=== PATIENT | female | born 2000 | race Caucasian/White ===

== ENCOUNTER 2022-03-27 15:10 | Inpatient (IN) | payer MEDICAID, SELFPAY ==
[2022-03-27] VITALS (26 sets, daily range): BP systolic 92–146; BP diastolic 55–93; PULSE 52–108; RESP 18; TEMP 35.6–36.6; BMI 23.6
[2022-03-27] MEDS: lactated ringers 1,000 ML 125 ML (16:21)
[2022-03-27] MEDS: oxytocin 30 UNIT/500 ML BAG 999 UNIT (16:21)
[2022-03-27] MEDS: tranexamic acid 1,000 mg/10mL SDV 1000 MG (16:22)
[2022-03-27 16:25] LABS: Basophils % 0.2 %; Eosinophils # 0.1 10^3/uL (0.0-0.8); Eosinophils % 0.6 %; Hemoglobin 12.1 g/dL (11.5-15.3); Lymphocytes # 2.7 10^3/uL (0.8-4.8); Lymphocytes % 18.8 %; Mean Corpuscular HGB Conc 32.7 g/dL (30.0-36.0); Mean Corpuscular Hemoglobin 29.1 pg (28.0-34.0); Mean Corpuscular Volume 88.9 fl (81-99); Mean Platelet Volume 12.3 fL (7.4-10.4); Monocytes # 1.2 10^3/uL (0.2-0.9); Neutrophils # 10.33 10^3/uL (1.8-7.7); Neutrophils % 71.7 %; Nucleated Red Blood Cells % 0 %; Platelet Count 187 10^3/cmm (130-400); Red Blood Count 4.16 10^6/uL (4.1-5.3); Red Cell Distribution Width 12.6 % (12.1-15.1); White Blood Count 14.4 10^3/uL (4.0-10.0)
--- NOTE | 2022-03-27 16:25 | P.HP_ITS ---
Providers/Chief Complaint Admitting Physician: Leah Franco MD Primary BROADCAST TRAFFIC COORDINATOR: none Chief Complaint: labor HPI BROADCAST TRAFFIC COORDINATOR History of Present Illness Tonja Mccartney is a 21 year old female with no care, who presented to labor and delivery in Labor with complete cervical dilation. She could not answer questions due to being under the influence of methamphetamine. She reports that she did not receive care with this . Her last baby was born at term at [facility]. He weight 4 pounds 9 oz. She last used methamphetamine 2 days ago. Review of Systems General: Reports: 10 or more systems reviewed and unremarkable except in HPI and below Vitals/I&O/Wt Last Vital Signs Pulse 80 03/27/22 16:20 BP 126/59 03/27/22 16:20 Physical Exam Narrative: The patient is screaming and thrashing. Const: COMMON NORMALS: average body habitus EXAM LIMITATIONS: altered mental status GENERAL APPEARANCE: combative and disheveled NUTRITIONAL APPEARANCE: thin ORIENTATION/CONSCIOUSNESS: Yes awake, Yes oriented to person and Yes oriented to place Resp: COMMON NORMALS: normal respiratory effort EFFORT & INSPECTION: Yes able to speak in complete sentences GI: COMMON NORMALS: Soft to palpation and non-tender : COMMON NORMALS: Yes normal external appearance, Yes normal appearance of the vagina and Yes normal appearance of the cervix Data : 03/27/22 15:20 Attestations Medical Necessity Statement*: The patient will likely be here just one day. I anticipate that this baby will not go home with the parents. Coding Level of Care Code Acute Steel Layout Worker for Catalina Diaz
--- NOTE | 2022-03-27 16:31 | PM.DELIVERY ---
Delivery Note: Date of delivery: March 27, 2022 Pre-delivery diagnoses: iup at unknown gestation, fundal height 22 cm, complete cervical dilation Post-delivery diagnoses: term male in the SHALINI presentation with a compound left hand Procedure: Delivering Physician: luis Estimated blood loss (mL): 525 Pre-Delivery Course: The patient presented to labor and delivery with unknown gestational age with complete cervical dilation. AROM was performed as there was a bulging bag of water Delivery: The patient had complete cervical dilation and began to push. The head delivered in the SHALINI position over an intact perineum under no anesthesia. The nose and mouth were bulb suctioned. The shoulders and body delivered atraumatically. The baby was placed onto the mother's abdomen. The cord was clamped and cut. Cord blood was obtained. The placenta delivered spontaneously. It was inspected and found to be intact. Inspection of the perineum revealed no repair required. pitocin delivery was delayed due to the urgency of the delivery. Pitocin was finally started, but the patient had significant uterine atony. Fundal massage, as well as bi-manual exam was performed. Cytotec 800 mcg was given rectally. TXA was also given. Estimated blood loss 525 mL. Apgars on baby were 9 at 1 minute and 9 at 5 minutes. Weight of baby is 4 pounds 12 ounces. Mother and baby were stable post delivery. Coding Level of Care Code Acute Aircraft Instrument Mechanic for Catalina Diaz
[2022-03-27 16:39] LABS: Amphetamines Screen Urine Positive (Negative); Barbiturates Screen Urine Negative (Negative); Benzodiazepines Screen Urine Negative (Negative); Cocaine Screen Urine Negative (Negative); Opiate Screen Urine Negative (Negative); PCP Screen Urine Negative (Negative); THC Screen Urine Positive (Negative)
[2022-03-27 17:02] LABS: Hepatitis B Surface Antigen Non-Reactive (Nonreactive)
[2022-03-27 17:10] LABS: Rapid Plasma Reagin Syphilis Nonreactive (Nonreactive); Rubella IgG 166.7 IU/mL (0.0-10.0)
[2022-03-27 17:22] LABS: HIV 1 & 2 Antibody Non-Reactive (Non-Reactiv); HIV 1 & 2 Antigen Non-Reactive (Non-Reactiv)
[2022-03-27] MEDS: nicotine 14 mg Patch 1 PATCH TRANSDERMA (18:28)
[2022-03-27] MEDS: acetaminophen 325 mg Tablet 650 MG PO (19:41)
[2022-03-27 19:51] LABS: Alcohol Level < 10 mg/dL (0-10)
[2022-03-27] MEDS: ibuprofen 800 mg tablet PO (20:59)
[2022-03-27] MEDS: hyDROXYzine 25 mg Capsule 50 MG PO (20:59)
--- NOTE | 2022-03-27 21:00 | PC.NURSE ---
Nurse educated pt on safe sleep for baby.
--- NOTE | 2022-03-27 21:56 | PC.NURSE ---
This pt stated that she wished her baby was a girl and born at 420.
[2022-03-28] VITALS: BP 105/75; PULSE 76
--- NOTE | 2022-03-28 00:59 | PC.NURSE ---
This nurse went to round on baby boy, when I walked into the room baby boy was whimpering and soaked in vomit parents stayed asleep, this nurse tried to wake them however they stayed asleep so this nurse attempted to tell mom I was taking the baby to clean him up, she stated, ok whatever.
[2022-03-28 01:00] VITALS: BP 110/67; PULSE 69
[2022-03-28 04:51] VITALS: BP 95/62; PULSE 65
[2022-03-28] MEDS: acetaminophen 325 mg Tablet 650 MG PO (05:29)
[2022-03-28 05:31] LABS: Hematocrit 25.4 % (37.0-47.0); Hemoglobin 8.6 g/dL (11.5-15.3); Mean Corpuscular HGB Conc 33.9 g/dL (30.0-36.0); Mean Corpuscular Volume 85.5 fl (81-99); Mean Platelet Volume 11.4 fL (7.4-10.4); Platelet Count 143 10^3/cmm (130-400); Red Blood Count 2.97 10^6/uL (4.1-5.3); Red Cell Distribution Width 12.6 % (12.1-15.1); White Blood Count 11.4 10^3/uL (4.0-10.0)
--- NOTE | 2022-03-28 06:23 | PC.NURSE ---
This nurse checked on pt hourly pt never did wake up to feed baby, this nurse had to take baby and feed him
--- NOTE | 2022-03-28 06:36 | PM.OBGYDC ---
Discharge Providers ELECTRONIC IMAGING SYSTEM OPERATOR Date of Admission: 03/27/22 15:48 Date of Discharge: 03/29/22 Attending Provider at Admission: Leah Franco MD Attending Provider at Discharge: Lori Brody MD - PRE-DELIVERY DIAGNOSIS: 21-year-old 3 para 1-0-1-1 of unknown gestation-likely term No care Active labor Drug use-marijuana and methamphetamines History of anxiety and depression not on medication POST-DELIVERY DIAGNOSIS: Vaginal delivery on 03/27/2022 PROCEDURE: Vaginal delivery on 03/27/2022 HOSPITAL COURSE: She underwent an vaginal delivery on 03/27/2022-she did have some bleeding which was controlled with medication--please refer to Dr. Farnco's delivery note for details. She did well on day 0 and was ambulating well, tolerating regular diet, voiding freely, passing flatus. Formula feeding her child. Pain was well-controlled with by mouth pain medication. She denied nausea, vomiting, fever, chills, shortness of breath, leg pain. She did take Vistaril for anxiety on forced day #0. Given her history of anxiety and depression and history of suicidal attempt psychiatry consult was called and she was seen by Dr. Murdock On 03/28/2022 and he recommended that she restart Seroquel and she desired to follow-up with [facility] instead of [place] despite extended waiting time. She had moderate vaginal bleeding. On day # 1 she continued to do well with stable vital signs and stable hemoglobin at 8.6--this was repeated 6 hours later and was stable at 8.9. Orthostatics were positive however patient denied any symptoms of dizziness or nausea and felt fine. Vital signs were otherwise within normal limits. She was discharged home on day 1 in a stable condition, as she desired early discharge. Warning signs for endometritis, mastitis, DVT/PE were reviewed with her. Post delivery activity restrictions were also reviewed with her at all her questions were answered to her satisfaction. Plans on using the pill for contraception and she was given a prescription for Micronor for 6 weeks EXAM AT DISCHARGE: Gen.: No acute distress Heart: S1-S2 heard, regular rate and rhythm Lungs: Clear to auscultation bilaterally Abdomen: Soft, fundus firm below umbilicus, Legs: No calf tenderness, trace bilateral pitting pedal edema. CONDITION AT DISCHARGE: Stable This documentation was created by [employer] remedial project manager software (known for inherent remedial project manager error). Every effort was made to assure accuracy of remedial project manager. Any obvious errors or omissions should be clarified with the author of the document. This documentation was created by [employer] remedial project manager software (known for inherent remedial project manager error). Every effort was made to assure accuracy of remedial project manager. Any obvious errors or omissions should be clarified with the author of the document. Reason for Visit Reason for Visit: labor Information Peripartum Data: Delivery Method: Vaginal Discharge Data Studies Completed and Pending Pending at discharge Category Date Time Status Amphetamine Confirmation, GC/M Routine Lab 03/27/22 15:45 Received Chlamydia Trachomatis LYNDSAY Routine Lab 03/27/22 15:45 Received Neisseria Gonorrhoeae LYNDSAY Routine Lab 03/27/22 15:45 Received Retype for Patiets ABO/Rh Routine Lab 03/27/22 18:09 Ordered Pathology: Surgical [PTH] Routine Pth 03/27/22 16:46 Ordered Laboratory Results WBC 11.4 10^3/uL (4.0-10.0) H 03/28/22 05:23 RBC 2.97 10^6/uL (4.1-5.3) L 03/28/22 05:23 Hgb 8.6 g/dL (11.5-15.3) L 03/28/22 05:23 Hct 25.4 % (37.0-47.0) L D 03/28/22 05:23 MCV 85.5 fl (81-99) 03/28/22 05:23 MCH 29.0 pg (28.0-34.0) 03/28/22 05:23 MCHC 33.9 g/dL (30.0-36.0) 03/28/22 05:23 RDW 12.6 % (12.1-15.1) 03/28/22 05:23 Plt Count 143 10^3/cmm (130-400) 03/28/22 05:23 MPV 11.4 fL (7.4-10.4) H 03/28/22 05:23 Neut % (Auto) 71.7 % 03/27/22 15:20 Lymph % (Auto) 18.8 % 03/27/22 15:20 Porter % (Auto) 8.0 % 03/27/22 15:20 Eos % (Auto) 0.6 % 03/27/22 15:20 Baso % (Auto) 0.2 % 03/27/22 15:20 Neut # (Auto) 10.33 10^3/uL (1.8-7.7) H 03/27/22 15:20 Lymph # (Auto) 2.7 10^3/uL (0.8-4.8) 03/27/22 15:20 Porter # (Auto) 1.2 10^3/uL (0.2-0.9) H 03/27/22 15:20 Eos # (Auto) 0.1 10^3/uL (0.0-0.8) 03/27/22 15:20 Baso # (Auto) 0.0 10^3/uL (0.0-0.1) 03/27/22 15:20 Nucleated RBC % (auto) 0 % 03/27/22 15:20 Nucleated RBCs # 0.0 /100WBC 03/27/22 15:20 Urine Opiates Screen Negative ng/mL (Negative) 03/27/22 15:45 Ur Barbiturates Screen Negative ng/mL (Negative) 03/27/22 15:45 Ur Phencyclidine Scrn Negative ng/mL (Negative) 03/27/22 15:45 Ur Amphetamines Screen Positive ng/mL (Negative) H 03/27/22 15:45 U Benzodiazepines Scrn Negative ng/mL (Negative) 03/27/22 15:45 Urine Cocaine Screen Negative ng/mL (Negative) 03/27/22 15:45 U Marijuana (THC) Screen Positive ng/mL (Negative) H 03/27/22 15:45 Ethyl Alcohol < 10 mg/dL (0-10) 03/27/22 15:20 RPR Nonreactive (Nonreactive) 03/27/22 15:20 Hep Bs Antigen Non-reactive (Nonreactive) 03/27/22 15:20 HIV 1&2 Ab & HIV 1 Ag Non-reactive (Non-Reactiv) 03/27/22 15:20 HIV 1&2 Antibody Non-reactive (Non-Reactiv) 03/27/22 15:20 Rubella IgG Antibody 166.7 IU/mL (0.0-10.0) H 03/27/22 15:20 Blood Type A Positive 03/27/22 15:20 Rho(D) Type Positive 03/27/22 15:20 Antibody Screen Negative 03/27/22 15:20 Vitals Last Vital Signs Temp 97.6 F 03/27/22 21:30 Pulse 65 03/28/22 04:51 Resp 18 03/27/22 16:25 BP 95/62 03/28/22 04:51 O2 Del Method 03/27/22 16:21 Discharge Plan Discharge Patient Disposition: Home Condition: Stable Prescriptions: New ibuprofen 800 mg tablet 800 mg PO Q8H Qty: 30 0RF ferrous sulfate 325 mg (65 mg iron) tablet 325 mg PO BID Qty: 30 0RF docusate sodium 100 mg capsule 100 mg PO BID PRN (Reason: constipation) Qty: 30 0RF Ortho Micronor 0.35 mg tablet 0.35 mg PO DAILY Qty: 50 0RF Rx Instructions: Take 1 tablet by mouth every day for 6 weeks and follow-up with for further refills Seroquel XR 200 mg tablet extended release 24 hr 200 mg PO .q6PM Qty: 30 1RF Discharge Orders: Discharge Order (Routine); Ordered 03/28/22 Ordered By: Lori Mcmahon Referrals: Leah Franco MD [Physician] - (* Please call first thing Wednesday morning to make your 6-week ) Discharge Diet: Regular Discharge Activity: Limit activity as instructed Patient Instructions: Depression (DC), Bleeding (DC), Preeclampsia and Eclampsia After Delivery (GEN), OB Discharge Report, OB Food/Drug Interaction Guide, Opioid Safety, OB Home Care, OB Proud Parent Packet, OB Vaginal Deliveries - [facility] Activity Restrictions/Additional Instructions: No heavy lifting for 6 weeks, pelvic rest for 6 weeks Follow-up with Dr. Franco for 6-week visit Emergency room precautions reviewed Discharge Attestations ELECTRONIC IMAGING SYSTEM OPERATOR Time Spent in Discharge Care*: greater than 30 min Coding Level of Care Code Acute Die Maker Bench Stamping for Chuyg Emily
[2022-03-28] MEDS: docusate sodium 100 mg Capsule PO (08:01)
[2022-03-28] MEDS: ibuprofen 800 mg tablet PO ×2 (08:01→16:11)
[2022-03-28] MEDS: prenatal vitamin Capsule 1 CAP PO (08:01)
[2022-03-28] MEDS: nicotine 14 mg Patch 1 PATCH TRANSDERMA (08:02)
[2022-03-28 08:37] VITALS: BP 100/65; BP 101/68; BP 86/50; PULSE 106; PULSE 150; PULSE 92
[2022-03-28 08:50] LABS: Basophils % 0.2 %; Eosinophils # 0.2 10^3/uL (0.0-0.8); Eosinophils % 1.5 %; Hematocrit 25.9 % (37.0-47.0); Hemoglobin 8.9 g/dL (11.5-15.3); Lymphocytes # 2.6 10^3/uL (0.8-4.8); Lymphocytes % 21.7 %; Mean Corpuscular HGB Conc 34.4 g/dL (30.0-36.0); Mean Corpuscular Hemoglobin 29.7 pg (28.0-34.0); Mean Corpuscular Volume 86.3 fl (81-99); Mean Platelet Volume 11.3 fL (7.4-10.4); Monocytes # 0.8 10^3/uL (0.2-0.9); Neutrophils # 8.21 10^3/uL (1.8-7.7); Neutrophils % 68.6 %; Nucleated Red Blood Cells % 0 %; Platelet Count 146 10^3/cmm (130-400); Red Cell Distribution Width 12.6 % (12.1-15.1)
[2022-03-28] MEDS: hyDROXYzine 25 mg Capsule 50 MG PO (13:38)
--- NOTE | 2022-03-28 14:04 | P.NPUCON_ITS ---
Providers/Reason for Consult Consulting Physican/Specialty*: Hal Murdock Reason for Consult*: psychiatric followup Attending Physician: Leah Franco MD Psych Consult HPI History of Present Illness Tonja Mccartney is a 21 year old female who delivered her second child yesterday. The patient's first child is currently in DFS custody at the age of 2. The patient reports a history of bipolar disorder with a history of mood sw ings racing thoughts increased periods of irritability along with periods of depression. She also endorses a past history of auditory hallucinations. She reports having received psychiatric treatment extensively through [place] and had been receiving psychiatric care under Dr. Lena Steven prior to finding out that she was in April 2021. The patient reports that she had stopped her psychiatric medications which included Seroquel 200 mg at night and Klonopin 1 mg 3 times a day and reports that she had decided instead to use methamphetamine and opiates including heroin and fentanyl during her . Patient reports a history of multiple inpatient hospitalizations. She reports no history of active, homicidal or suicidal thoughts. She reports having chronic problems with insomnia. She reports having frequent panic attacks. Outpatient tx: Dr. Lena Steven DO, last seen 9 months ago. Drug and Alcohol history: The patient reports extended history of nicotine use marijuana use and frequent methamphetamine use over the past few years. She reports having been placed in rehabilitation facilities in the past. Medical Hx: none reported Allergies: zithromax Pertinent social history: The patient was born in [facility] she reports having 1 brother. She reports dropping out of school in the eighth grade. She reports never having had earned a GED. She reports an extensive legal history of criminal trespassing. She reports that she is planning on living in [place] although currently she is residing in [facility]. Meds Home Medications and Allergies Home Medications Medication Instructions Recorded Confirmed Last Taken Type docusate sodium 100 mg capsule 100 mg PO BID PRN constipation #30 03/28/22 Unknown Rx caps ferrous sulfate 325 mg (65 mg 325 mg PO BID anemia #30 tabs 03/28/22 Unknown Rx iron) tablet ibuprofen 800 mg tablet 800 mg PO Q8H pain #30 tabs 03/28/22 Unknown Rx norethindrone (contraceptive) 0.35 0.35 mg PO DAILY #50 tabs 03/28/22 Unknown Rx mg tablet (Ortho Micronor) quetiapine 200 mg tablet,extended 200 mg PO .q6PM #30 tabs 03/28/22 Unknown Rx release 24 hr (Seroquel XR) Allergies Allergy/AdvReac Type Severity Reaction Status Date / Time azithromycin Allergy ADR-Headach Verified 03/27/22 17:21 [From Zithromax Z-Omer] e Current Medications Current Medications Generic Name Dose Route Start Last Admin Trade Name Freq PRN Reason Stop Dose Admin Acetaminophen 650 mg 03/27/22 16:10 03/28/22 05:29 Acetaminophen 325 Mg Tablet PO 650 mg Q6H PRN Administration Mild pain or temp > 100.4 Docusate Sodium 100 mg 03/27/22 18:00 03/28/22 08:01 Docusate Sodium 100 Mg Capsule PO 100 mg BID RY Administration Hydroxyzine Pamoate 50 mg 03/27/22 16:10 03/28/22 13:38 Hydroxyzine 25 Mg Capsule PO 50 mg QID PRN Administration sleep, agitation or itching Ibuprofen 800 mg 03/27/22 21:00 03/28/22 08:01 Ibuprofen 800 Mg Tablet PO 800 mg TID RY Administration Nicotine 1 patch 03/27/22 18:30 03/28/22 08:02 Nicotine 14 Mg Patch TRANSDERMA 1 patch DAILY RY Administration Multivit/Folic Acid/Iron 1 cap 03/28/22 09:00 03/28/22 08:01 Vitamin Capsule PO 1 cap DAILY RY Administration PFSH NPU Female Reproductive History: : 2 Mental Status Exam MSE Comments: She is a thin white female who appeared her stated age. She appeared in no acute distress. There was no evidence of any abnormal involuntary motor movements tics or tremors. Her mood was described as okay. Her affect was mood congruent and euthymic her thought process was linear and logical but superficial her thought content showed no evidence of active homicidal or suicidal ideation. There is no evidence of delusional thinking. She did not appear to be responding to internal stimuli. Her insight was poor. Her judgment was poor her impulse control remained limited. Vitals/I&O/Wt Last Vital Signs Temp 97.6 F 03/27/22 21:30 Pulse 92 03/28/22 08:37 Resp 18 03/27/22 16:25 BP 100/65 03/28/22 08:37 O2 Del Method 03/27/22 16:21 Weight last 48 hrs Weight 56.7 kg Weight 56.7 kg Data NPU : 03/28/22 08:40 Micro: Microbiology 03/27/22 15:45 Neisseria gonorrhoeae (LYNDSAY) - Final Urine Random 03/27/22 15:45 Chlamydia trachomatis (LYNDSAY) - Final Urine Random Microbiology 03/27/22 15:45 Urine Random Neisseria gonorrhoeae (LYNDSAY) - Final 03/27/22 15:45 Urine Random Chlamydia trachomatis (LYNDSAY) - Final A&P Assessment and plan (1) Mood disorder: Status: Acute (2) Polysubstance abuse: Status: Acute Plan Plan: 1. Restart Seroquel xr 200mg in AM as previously prescribed to target mood instability 2. Not agreeable to starting any benzodiazepines 3. Patient wishes for follow up with [facility] despite reports of extended waiting times. Patient informed of walk in clinic. Patient also encouraged to consider with following up with Dr. Lena Steven as previously done. She was agreeable to team contacting them to get an appointment earlier with him. 4. Consider use of suboxone on outpatient basis for opiate addiction. 5. Referral for case management services may be necessary given the patient's ongoing addiction issues in leading to patient having Department of Family Services involvement again. Attestations NPU Medical Necessity Statement*: NA Coding Level of Care Code New Pt Acute Android Architect for Chg Fwd Patient Type New History Problem Focused Exam Problem Focused Medical Decision Making Straight Forward Diagnoses Mood disorder F39 Polysubstance abuse F19.10
--- NOTE | 2022-03-28 16:10 | PC.NURSE ---
THIS AUTOMOTIVE PARTS COUNTER ASSISTANT WROTE A LENGTHY INCIDENT REPORT ON THIS PATIENT, SEE THAT FOR DETAILS IF NEEDED.
[2022-03-28 16:32] VITALS: BP 100/62; PULSE 82; RESP 16; TEMP 36.7
[2022-03-28 16:54] VITALS: BP 100/62; PULSE 82; RESP 16; TEMP 36.7
[2022-04-03 16:57] LABS: Amphetamine 1300 ng/mL; Methamphetamine 12000 ng/mL; Methylenedioxyamphetamine negative; Methylenedioxyethylamphetamine negative; Methylenedioxymethamphetamine negative
== END 2022-03-28 16:56 | disposition home or self-care (01) | DRG 806 ==
PROVIDERS: Obstetrics & Gynecology; Admitting Provider Obstetrics & Gynecology; Visit Provider Obstetrics & Gynecology
DX: O99.324 Drug use complicating childbirth (principal); F11.20 Opioid dependence, uncomplicated; Z37.0 Single live birth; O72.1 Other immediate postpartum hemorrhage; F19.10 Other psychoactive substance abuse, uncomplicated; F15.10 Other stimulant abuse, uncomplicated; O32.6XX0 Maternal care for compound presentation, not applicable or unspecified; O99.344 Other mental disorders complicating childbirth; F39 Unspecified mood [affective] disorder; Z3A.00 Weeks of gestation of pregnancy not specified; Z65.3 Problems related to other legal circumstances
CPT/HCPCS: 36415; 59409; 80306; 80307; 80324; 80359; 85025; 85027; 86592; 86762; 86850; 86900; 87340; 87491; 87591; 87806; 88307; 99211